=== PATIENT | female | born 1980 | race Caucasian/White ===

== ENCOUNTER 2016-12-14 07:36 | Inpatient (IN) | payer BC ==
[2016-12-14] MEDS ORDERED: Dinoprostone* 10 MG VAG.SUPP VAGINAL ONE ×2 (08:12→21:06)
[2016-12-14] MEDS: Omeprazole CAP* 20 MG PO SCH (09:41)
[2016-12-15] MEDS: Omeprazole CAP* 20 MG PO SCH (07:38)
[2016-12-15 10:49] LABS: Hematocrit 41 % (35-47); Hemoglobin 13.9 g/dl (12.0-16.0); Mean Corpuscular HGB Conc 34 g/dl (31-36); Mean Corpuscular Hemoglobin 28 pg (27-31); Mean Corpuscular Volume 84 fL (80-97); Mean Platelet Volume 9 um3 (7.4-10.4); Red Blood Count 4.87 10^6/ul (4.0-5.4); Red Cell Distribution Width 15 % (10.5-15); White Blood Count 11.6 10^3/ul (3.5-10.8)
[2016-12-15] MEDS ORDERED: Oxytocin in LR* 20 UNITS/1,000 ML BAG IVPB ONE (20:03)
[2016-12-15] MEDS ORDERED: Oxytocin in LR* 20 UNITS/1,000 ML BAG IVPB SCH (21:00)
[2016-12-15] MEDS ORDERED: Nalbuphine* 20 MG/ML 1 ML VIAL IV ONE (22:17)
[2016-12-15] MEDS ORDERED: Promethazine INJ(RESTRICTED)* 25 MG/ML 1 ML VIAL IV PRN (22:18)
[2016-12-16] MEDS: Omeprazole CAP* 20 MG PO SCH (10:32)
[2016-12-16] MEDS ORDERED: Misoprostol TAB* 100 MCG ONE (10:42)
[2016-12-16] MEDS ORDERED: Misoprostol TAB* 100 MCG PO ONE (10:42)
[2016-12-16] MEDS ORDERED: hydrOXYzine HCL TAB* 50 MG PO PRN (20:00)
[2016-12-16] MEDS ORDERED: Sodium Phosphate ADULT ENEMA* 118 ml bottle PR ONE (20:00)
[2016-12-16] MEDS ORDERED: hydrOXYzine HCL TAB* 50 MG PO ONE (20:00)
[2016-12-17] MEDS ORDERED: ceFOXitin 2 GM IVPREMIX* 2 GM/50 ML BAG IVPB ONE (07:04)
[2016-12-17] MEDS ORDERED: Sodium Citrate/Citric Acid* 15 ML UDC PO ONE (07:05)
[2016-12-17] MEDS ORDERED: Buffered Lidocaine 0.9% SYRIN* 5 ML/SYR SYRINGE ONE (07:11)
[2016-12-17] MEDS ORDERED: Morphine PF AMP (0.5MG/ML)* 5 MG/10 ML AMP ONE (08:00)
[2016-12-17] MEDS ORDERED: OXYTOCIN* 10 UNITS/ML 1 ML VIAL ONE (08:00)
[2016-12-17] MEDS ORDERED: Phenylephrine INJ* 10 MG/ML 1 ML VIAL (10 MG) ONE (08:00)
[2016-12-17 08:43] LABS: Hematocrit 40 % (35-47); Hemoglobin 13.5 g/dl (12.0-16.0); Mean Corpuscular HGB Conc 34 g/dl (31-36); Mean Corpuscular Hemoglobin 29 pg (27-31); Mean Corpuscular Volume 85 fL (80-97); Mean Platelet Volume 10 um3 (7.4-10.4); Red Blood Count 4.74 10^6/ul (4.0-5.4); Red Cell Distribution Width 15 % (10.5-15); White Blood Count 9.6 10^3/ul (3.5-10.8)
[2016-12-17] MEDS ORDERED: Ondansetron INJ* 2 MG/ML VIAL IV PRN ×2 (09:13→09:16)
[2016-12-17] MEDS ORDERED: fentaNYL* 50 MCG/ML 2 ML VIAL (100 MCG VIAL) IV PRN (09:13)
[2016-12-17] MEDS ORDERED: diPHENhydraMINE IV* 50 MG/ML 1 ml VIAL (BENADRYL) IV PRN (09:16)
[2016-12-17] MEDS ORDERED: Naloxone* 0.4 MG/ML 1 ML VIAL IV PRN (09:16)
[2016-12-17] MEDS ORDERED: oxyCODONE/Acetamin 5/325 MG* TAB PO PRN ×2 (09:16)
[2016-12-17] MEDS ORDERED: Witch Hazel PAD* JAR TOPICAL PRN (10:13)
[2016-12-17] MEDS ORDERED: Acetaminophen TAB* 325 MG PO PRN (10:13)
[2016-12-17] MEDS ORDERED: Dibucaine 1% 28.35 GM TUBE PR PRN (10:13)
[2016-12-17] MEDS ORDERED: Glycerin ADULT SUPP PR PRN (10:13)
[2016-12-17] MEDS ORDERED: Zolpidem TAB* 5 MG PO PRN (10:13)
[2016-12-17] MEDS ORDERED: RHO D Immune Globulin (HUMAN)* 300 MCG = 1,500 I.U. INJ IM ONE (10:13)
[2016-12-17] MEDS: Omeprazole CAP* 20 MG PO SCH (10:33)
[2016-12-17] MEDS ORDERED: Oxytocin in LR* 20 UNITS/1,000 ML BAG IVPB SCH (11:00)
[2016-12-17] MEDS ORDERED: diPHENhydraMINE IV* 50 MG/ML 1 ml VIAL (BENADRYL) ONE (11:26)
[2016-12-17] MEDS ORDERED: Ketorolac INJ* 30 MG/ML 1 ML VIAL ONE (11:27)
[2016-12-17] MEDS: Ketorolac INJ* 30 MG/ML 1 ML VIAL IV PRN ×2 (11:29→17:36)
--- NOTE | 2016-12-17 13:32 | OP ---
AMENDED REPORT NOW INCLUDES DATE OF OPERATION - ESIGNED BEFORE ADJUSTMENT * DATE OF OPERATION: 12/17/16 - ROOM #[id number] DATE OF : 76 SURGEON: Mitchell Spain MD HOSPITAL INTERN: Dr. Joya. PRE-OP DIAGNOSIS: Mild preeclampsia and failed induction. POST-OP DIAGNOSIS: Mild preeclampsia and failed induction. OPERATIVE PROCEDURE: section. ESTIMATED BLOOD LOSS: 600 mL. COMPLICATIONS: None. FINDINGS: Include a viable male. Apgars 8 and 8. Weight was 8 pounds 11 ounces. Normal appearing uterus, fallopian tubes and ovaries. No fibroid was visualized. DESCRIPTION OF PROCEDURE: Patient identified, procedure identified as low transverse section. Patient was taken to the operating room, prepped and draped in the usual fashion in the left lateral recumbent position and under spinal anesthesia, Pfannenstiel incision was made in the abdomen and carried down through fat, fascia and peritoneum. The Ezra retractor was placed and tightened down. An incision was made in the lower uterine segment, extended laterally using blunt dissection. The above was delivered through the incision with ease. Cord was doubly clamped and cut, and the infant was handed to the waiting fountain brush assembler. Cord blood was obtained, placenta delivered spontaneously. Uterus was wiped out with wet lap sponge. The uterine incision was then closed using 0 Polysorb in running fashion and a second layer was used to imbricate the first layer. Good hemostasis achieved with 0 Polysorb [id number] sutures. Both fallopian tubes and ovaries were visualized and appeared normal. Good hemostasis was verified. The peritoneum was closed using 3-0 Polysorb in a running fashion. The subrectus tissue was found to be hemostatic; it was closed using 0 Polysorb. The fascia was closed using 0 Polysorb in a running fashion. Hemostasis achieved in the sucbu. The space was closed using 0 Polysorb in a simple fashion and the skin was closed using 4-0 Monocryl in a subcuticular fashion. All sponge, instrument counts were correct. The patient tolerated the procedure well, went to recovery room in stable condition. [id number]/[facility] #: [id number] [facility]
[2016-12-17] MEDS: Simethicone CHEW TAB* 80 MG PO SCH ×3 (14:54→20:15)
[2016-12-17] MEDS: Docusate CAP* 100 MG PO SCH ×2 (14:54→20:15)
[2016-12-17 18:14] LABS: Hematocrit 40 % (35-47); Hemoglobin 13.5 g/dl (12.0-16.0)
[2016-12-18] MEDS: oxyCODONE/Acetamin 5/325 MG* TAB PO PRN ×4 (06:15→22:39)
[2016-12-18] MEDS: Omeprazole CAP* 20 MG PO SCH (06:17)
[2016-12-18 07:53] LABS: Hematocrit 38 % (35-47); Hemoglobin 13.2 g/dl (12.0-16.0); Mean Corpuscular HGB Conc 34 g/dl (31-36); Mean Corpuscular Hemoglobin 29 pg (27-31); Mean Corpuscular Volume 85 fL (80-97); Mean Platelet Volume 9 um3 (7.4-10.4); Red Blood Count 4.52 10^6/ul (4.0-5.4); Red Cell Distribution Width 15 % (10.5-15); White Blood Count 9.1 10^3/ul (3.5-10.8)
[2016-12-18] MEDS: Ferrous Gluconate TAB* 324 MG TAB PO SCH ×2 (09:00→09:51)
[2016-12-18] MEDS: Simethicone CHEW TAB* 80 MG PO SCH ×4 (09:50→20:32)
[2016-12-18] MEDS: Docusate CAP* 100 MG PO SCH ×3 (09:51→20:32)
[2016-12-18] MEDS: Ibuprofen TAB* 600 MG PO PRN ×2 (09:51→17:26)
[2016-12-18] MEDS ORDERED: Ibuprofen TAB* 600 MG PO PRN (10:13)
[2016-12-19] MEDS: Ibuprofen TAB* 600 MG PO PRN ×2 (00:34→08:10)
[2016-12-19] MEDS: oxyCODONE/Acetamin 5/325 MG* TAB PO PRN ×2 (03:42→08:09)
[2016-12-19] MEDS: Omeprazole CAP* 20 MG PO SCH (07:29)
[2016-12-19] MEDS: Simethicone CHEW TAB* 80 MG PO SCH (08:07)
[2016-12-19] MEDS: Docusate CAP* 100 MG PO SCH (08:10)
[2016-12-19 08:22] VITALS: BP 126/67
--- NOTE | 2016-12-19 08:47 | PTEDU ---
Patient Name: PATRICIO CAPPS PATRICIO CAPPS selected video: Follow Me Mum: The [employer] [facility] [employer] to view on 017 at 8:45:52 AM [id number]
--- NOTE | 2016-12-19 09:06 | PTEDU ---
Patient Name: PATRICIO CAPPS JEFRYPATRICIO selected video: Never Ever Shake a Baby to view on 12/19/2016 at 9:05:10 AM from [facility] [id number]
== END 2016-12-19 12:20 | disposition home or self-care (01) | DRG 540 ==
LOC: MCHOBOUT 07:36 → MCHOB 08:14
PROVIDERS: ADMIT Obstetrics & Gynecology; ATTEND Obstetrics & Gynecology
PROC: 3E0P7GC Introduction of Other Therapeutic Substance into Female Reproductive, Via Natural or Artificial Opening (ICD-10-PCS; 2016-12-17)
PROC: 10D00Z1 Extraction of Products of Conception, Low, Open Approach (ICD-10-PCS; principal; 2016-12-17 08:44)
DX: O14.03 Mild to moderate pre-eclampsia, third trimester (principal); O09.513 Supervision of elderly primigravida, third trimester; O62.2 Other uterine inertia; Z3A.38 38 weeks gestation of pregnancy; Z37.0 Single live birth
CPT/HCPCS: 36415; 85014; 85018; 85025; 85027; 86850; 86900; 86901; A9270-GY; J0694; J1200; J1885; J2300; J2405; J2550; J2590; S0191

== ENCOUNTER 2017-02-09 07:35 | Day surgery (SDC) | payer BC ==
[~2017-02-09 07:35] MED LIST: Buffered Lidocaine 0.9% SYRIN* 5 ML/SYR SYRINGE INTRADERM ONE; Dexamethasone IV* 4 MG/ML 1 ML (4 MG) IV SLOW PU ONE; Famotidine IV* 10 MG/ML 2 ML (20 mg) IV ONE
[2017-02-09] MEDS ORDERED: Famotidine IV* 10 MG/ML 2 ML (20 mg) ONE (07:37)
[2017-02-09] MEDS ORDERED: Buffered Lidocaine 0.9% SYRIN* 5 ML/SYR SYRINGE ONE (07:37)
[2017-02-09] MEDS ORDERED: Dexamethasone IV* 4 MG/ML 1 ML (4 MG) ONE (07:37)
[2017-02-09] MEDS ORDERED: Midazolam* 1 MG/ML 2 ML VIAL (2 MG) ONE (08:11)
[2017-02-09] MEDS ORDERED: fentaNYL* 50 MCG/ML 2 ML VIAL (100 MCG VIAL) ONE ×3 (08:11→09:49)
[2017-02-09] MEDS ORDERED: Remifentanil* 2 MG VIAL ONE (08:11)
[2017-02-09] MEDS ORDERED: Propofol* 10 MG/ML 20 ML BTL IV PUSH ONE ×2 (08:16→09:04)
[2017-02-09] MEDS ORDERED: Ondansetron INJ* 2 MG/ML VIAL ONE (08:16)
[2017-02-09] MEDS ORDERED: Ketorolac INJ* 30 MG/ML 1 ML VIAL ONE (08:16)
[2017-02-09] MEDS ORDERED: Lidocaine 2% PF * 5 ML VIAL ONE (08:16)
[2017-02-09] MEDS ORDERED: Succinylcholine* 20 MG/ML 10 ML VIAL ONE (08:25)
[2017-02-09] MEDS ORDERED: Bupivacaine 0.5% SDV PF* 30 ML VIAL ONE (08:32)
[2017-02-09] MEDS ORDERED: Levalbuterol 0.63MG/3ML NEB* UNIT OF USE INH PRN (08:33)
[2017-02-09] MEDS ORDERED: Acetaminophen TAB* 325 MG PO PRN (08:33)
[2017-02-09] MEDS ORDERED: Ondansetron INJ* 2 MG/ML VIAL IV PRN (08:33)
[2017-02-09] MEDS ORDERED: oxyCODONE TAB* 5 MG TAB PO PRN (08:33)
[2017-02-09] MEDS ORDERED: Scopolamine 1.5 mg* PATCH TRANSDERM PRN (08:33)
[2017-02-09] MEDS ORDERED: oxyCODONE/Acetamin 5/325 MG* TAB PO PRN (08:33)
[2017-02-09] MEDS ORDERED: Levalbuterol HFA INHALER* 1 PUFF MDI ONE (08:52)
[2017-02-09] MEDS ORDERED: Glycopyrrolate IV* 0.2 MG/ML 1 ML VIAL ONE (09:11)
[2017-02-09] MEDS ORDERED: Levalbuterol 1.25MG/0.5ML NEB ONE (09:40)
[2017-02-09] MEDS: fentaNYL* 50 MCG/ML 2 ML VIAL (100 MCG VIAL) IV PRN ×4 (09:44→09:57)
[2017-02-09] MEDS ORDERED: HYDROmorphone INJ* 1 MG/ML CARPUJECT SYRINGE ONE (09:49)
[2017-02-09] MEDS: HYDROmorphone INJ* 1 MG/ML CARPUJECT SYRINGE IV PRN ×2 (09:52→09:59)
[2017-02-09 11:14] VITALS: BP 116/65
--- NOTE | 2017-02-09 22:22 | OP ---
DATE OF OPERATION: 02/09/17 - [facility] DATE OF : 76 SURGEON: Mitchell Spain MD. ANESTHESIOLOGIST: Barbara Shelton MD ANESTHESIA: General endotracheal tube. PRE-OP DIAGNOSIS: Desires permanent sterilization. POST-OP DIAGNOSES: Desires permanent sterilization, left ovarian cyst. OPERATIVE PROCEDURE: Laparoscopic bilateral tubal ligation and drainage of ovarian cyst. COMPLICATIONS: None. FINDINGS: On exam under anesthesia on laparoscopy, the anterior bladder flap contains some adhesions. The left ovary was enlarged approximately 6 x 5 cm with a smooth surface. The fallopian tube on this side appeared normal. There were no excrescences. On the right side, the right ovary appeared normal and the right tube appeared normal. DESCRIPTION OF PROCEDURE: The patient identified, procedure identified as a laparoscopic tubal ligation, taken to the operating room, prepped and draped in the usual fashion in the dorsal lithotomy position under general anesthesia. A small infraumbilical incision was made and a Veress needle was inserted through this. The abdomen was insufflated to 15 mmHg. The Veress needle was removed and the trocar was inserted. The trocar was removed from the sheath and the laparoscope was inserted and the above findings were noted. A second trocar was inserted 2 cm above the pubic symphysis in the midline under direct visualization. The bipolar Kleppinger cautery was inserted, the right fallopian tube was grasped in the mid portion, followed out to its fimbriated ends and fulgurated x3. The same procedure was carried out on the left after following out to its fimbriated ends. Good hemostasis was verified. Due to the left ovarian cyst, decision was made to drain this and assess the fluid. The fluid was clear. Using unipolar cautery, a small window was made in the left ovary and clear fluid was obtained. A small amount was sent for cytology. Good hemostasis was verified. All instruments were removed from the abdomen. The abdomen was deflated of CO2. All sponge and instrument counts were correct. The skin was closed with skin glue. Sponge and sponge sticks were removed from the vagina and the patient returned to recovery room in stable condition. [id number]/[facility] #: [id number] MTDD
[2017-02-12] MEDS ORDERED: Scopolamine PATCH Remove* 1 NOTE MISC PATCH OFF ONE (08:33)
== END 2017-02-09 11:23 | disposition home or self-care (01) ==
LOC: OR 07:35
PROVIDERS: ATTEND Obstetrics & Gynecology
DX: Z30.2 Encounter for sterilization (principal); N83.202 Unspecified ovarian cyst, left side; F17.200 Nicotine dependence, unspecified, uncomplicated; Z68.27 Body mass index [BMI] 27.0-27.9, adult; K21.9 Gastro-esophageal reflux disease without esophagitis
CPT/HCPCS: 81025; 88112; A9270-GY; J0330; J1100; J1170; J1885; J2250; J2405; J2704; J3010

== ENCOUNTER 2018-06-10 18:49 | Emergency (ER) | payer BC ==
[2018-06-10 19:23] VITALS: BP 135/91
[2018-06-10] MEDS ORDERED: Lidocaine 1%* 5 ML VIAL INJ ONE (20:37)
[2018-06-10] MEDS ORDERED: Tetan/Diph/Pertus SYR(Tdap)* 0.5 ML SYR(BOOSTRIX) use SYR IM ONE (20:38)
[2018-06-10] MEDS ORDERED: Amoxicillin PO (*) 500 MG CAP PO ONE (21:29)
--- NOTE | 2018-06-11 11:33 | UC ---
Laceration HPI - HPI Summary HPI Summary: 37 y/o female presents to the urgent care c/o cutting her Rt hand at the base of her Rt pinky finger w/ a glass while washing the dishes around 1820 tonight. Pt states glass broken side and she didn't realized it when she put her hand in. Pt states bleeding stopped w/ pressure. Pain is 4/10 at touch. She can move finger w/o any difficulty. Pt also c/o nasal congestion sinus pain and pressure w/ green nasal discharge for the pst 2 weeks. symptoms are getting worse since now she is developing a dry cough.pt denies numbness or tingling sensation over the hand or fingers, SOB, chest pain, dizziness, abdominal pain, N/V/d.,. Pt is not UTD w/ her Tetanus vaccines. - History Of Current Complaint Chief Complaint: UCUpperExtremity Stated Complaint: FINGER LACERATION Time Seen by Provider: 06/10/18 20:07 Hx Obtained From: Patient Hx Last Menstrual Period: 05/27/18 Laceration Location: Hand - RT hand dorsal side over the 5th MCPJ Mechanism Of Injury: Sharp Trauma Onset/Duration: Sudden Onset, Lasting Hours - 2 hrs, Still Present Severity: Mild Pain Intensity: 4 Pain Scale Used: 0-10 Numeric Aggravating Factors: Movement, Other: - touch Related History: Dominant Hand Right - Allergies/Home Medications Allergies/Adverse Reactions: Allergies Allergy/AdvReac Type Severity Reaction Status Date / Time No Known Allergies Allergy Verified 06/10/18 19:23 PMH/Surg Hx/FS Hx/Imm Hx Previously Healthy: Yes GI/ History: Gastroesophageal Reflux - Surgical History Surgical History: Yes Surgery Procedure, Year, and Place: tonsillectomy and adenoidectomy 2004 [facility] [place]. C SECTION 12/17/16 [facility] [place] SPINAL ANESTHESIA - Family History Known Family History: Positive: Cardiac Disease - CHF, Diabetes - Social History Occupation: Employed Full-time Lives: With Family Alcohol Use: Occasionally Alcohol Amount: 2 BEERS Substance Use Type: None Smoking Status (MU): Light Every Day Tobacco Smoker Type: Cigarettes Amount Used/How Often: 1/2 ppd - Immunization History Most Recent Influenza Vaccination: Unknown Most Recent Pneumonia Vaccination: Unknown Review of Systems All Other Systems Reviewed And Are Negative: Yes Constitutional: Positive: Negative Skin: Positive: Other - laceration over the Rt hand dorsal side w/ a glass ENT: Positive: Negative Respiratory: Positive: Negative Cardiovascular: Positive: Negative Gastrointestinal: Positive: Negative Genitourinary: Positive: Negative Motor: Positive: Negative Neurovascular: Positive: Negative Musculoskeletal: Positive: Other: - Rt hand pain s/p laceration w/ a glass Neurological: Positive: Negative Psychological: Positive: Negative Is Patient Immunocompromised?: No Physical Exam - Summary Physical Exam Summary: Vital Signs Reviewed: Yes General: well developed, well nourished female sitting in the examining table w/ o any apparent distress Eye Exam: Normal Eyes: Positive: Conjunctiva Clear - PERRLA, EOMI, fundi grossly normal ENT: Positive: Normal ENT inspection, Hearing grossly normal, Pharynx normal, TMs normal. Positive maxillary and frontal tenderness on percussion, Erythemaots and edematous nasal mucosa w/ yellowish drainage and +moderated PND. Neck: Positive: Supple, Nontender, No Lymphadenopathy Respiratory: Positive: Chest non-tender, Lungs clear, Normal breath sounds, No respiratory distress Cardiovascular: Positive: RRR, No Murmur, Pulses Normal, Brisk Capillary Refill Abdomen Description: Positive: Nontender, No Organomegaly, Soft. Negative: CVA Tenderness (R), CVA Tenderness (L) Bowel Sounds: Positive: Present Musculoskeletal: Positive: Strength Intact, ROM Intact, No Edema Neurological: Positive: Alert, Muscle Tone Normal Psychological Exam: Normal Skin: Positive:Dorsal side of the Rt hand over the 5th MCPJ w/ a linear superficial laceration about 1.5cm in size, non bleeding, no foreign body observed. mild tenderness to palpation, FROM of RT hand and fingers, sensation intact, capillary refill brisk, and pulses WNL. Triage Information Reviewed: Yes Vital Signs: Initial Vital Signs Temp 98.3 F 06/10/18 19:16 Pulse 80 06/10/18 19:16 Resp 18 06/10/18 19:16 BP 135/91 06/10/18 19:16 Pulse Ox 97 06/10/18 19:16 Laceration Repair - Laceration Repair 1 Description: Linear Laceration Size After Repair: Length (cm) - 1.5 cm in size Modified For Repair: No Anesthesia Used: 1.0% Lido - 2 ml Cleansing Completed Via Routine Prep: Yes Irrigation With Pressure Irrigation Device: Yes Closure Material: Sutures - 5 Closure Method: Single Layer Suture Of: Skin, SQ Suture Type: Nylon Laceration Course/Dx - Course/Dx Course Of Treatment: 37 y/o female presents to the urgent care c/o cutting her Rt hand at the base of her Rt pinky finger w/ a glass while washing the dishes around 1820 tonight. Pt states glass broken side and she didn't realized it when she put her hand in. Pt states bleeding stopped w/ pressure. Pain is 4/10 at touch. She can move finger w/o any difficulty. Pt also c/o nasal congestion sinus pain and pressure w/ green nasal discharge for the pst 2 weeks. symptoms are getting worse since now she is developing a dry cough.pt denies numbness or tingling sensation over the hand or fingers, SOB, chest pain, dizziness, abdominal pain, N/V/d.,. Pt is not UTD w/ her Tetanus vaccines.Hx obtained. Pt w / sinusitis and superfifical linear laceration of 1.5 cm in size over the RT dorsal side of the RT 5th MCPJ w/ FROM on examination. LACERATION PROCEDURE NOTE : . Copious irrigation was done with saline by the nurse and the wound explored. There was no FB or deep structure injury noted. FROM of left forearm. procedure was explained and consent obtained, Timeout performed. The wound was anesthetized with 2 mL of 1% lido with good anesthesia. Sterile drape and prep were don. There were 5 sutures with 5.0 nylon type of suture. The length of the wound after closure was 1.5cm. No debridement done. Pt tolerated the procedure well without adverse effects. Neurovascular intact and FROM. Tdap ordered and applied by nurse. Pt advised to f/u suture removal in 10 -12 days and if any signs of infection develop to immediately return to the urgent care of PCP for further management and treatment. Pt Rx Amoxicillin PO and Flonase Nasal spray to alleviate Sinusitis as directed below. First dose given at the clinic tonight by nurse. Pt given alos Tdap IM inj. Pt tolerated well IM inj. D/C instructions explained. Pt understood and agreed and left the clinic ambulating A&Ox3. - Differential Dx - Laceration/Wound Differental Diagnoses: Abrasion, Avulsion, Foreign Body, Fracture, Laceration, Puncture Wound, Tendon Laceration - Diagnosis Provider Diagnosis: Laceration of right hand, Acute bacterial sinusitis, Elevated BP without diagnosis of hypertension Discharge - Sign-Out/Discharge Documenting (check all that apply): Patient Departure - D/C home All imaging exams completed and their final reports reviewed: No Studies - Discharge Plan Condition: Stable Disposition: HOME Prescriptions: Amoxicillin PO (*) [Amoxicillin 875 MG (*)] 875 mg PO BID #19 tab Bacitracin OINTMENT* 1 applic TOPICAL BID #1 tube Fluticasone NASAL SPRAY 50MCG* [Flonase NASAL SPRAY 50MCG*] 2 spray BOTH NARES DAILY #1 btl Patient Education Materials: Laceration (DC), Sinusitis (ED) Forms: *Work Release Referrals: Flavio Conroy MD [Primary Care Provider] - 1 Week Additional Instructions: 1-Please take full course of antibiotic to avoid resistance to alleviate your sinusitis. Use flonase nasal spray and saline drops as directed to clear sinuses 2- Keep wound clean and dry and avoid excessive movement w/ your finger. Apply Bacitracin ointment as directed to avoid infection. 3- F/u suture removal in 10-12 days w/ your PCP or here at the urgent care. 4-Take Ibuprofen or Tylenol PO q6-8hrs prn for pain or swelling. 5- If you develop fever or redness around your finger despite the antibiotic please return to the Urgent care or you PCP. 6-Your BP is elevated today. please decrease salt in your diet, monitor BP and if it continues to be elevated please f/u with your PCP for further management. - Billing Disposition and Condition Condition: STABLE Disposition: Home
== END 2018-06-10 21:56 | disposition home or self-care (01) ==
LOC: UCEAST 18:49
DX: S61.411A Laceration without foreign body of right hand, initial encounter (principal); W25.XXXA Contact with sharp glass, initial encounter; Y93.G1 Activity, food preparation and clean up; Y92.9 Unspecified place or not applicable; J01.90 Acute sinusitis, unspecified; B96.89 Other specified bacterial agents as the cause of diseases classified elsewhere; R03.0 Elevated blood-pressure reading, without diagnosis of hypertension; F17.210 Nicotine dependence, cigarettes, uncomplicated
CPT/HCPCS: 12001; 90471; 90715; 99212; A9270-GY; G0463

== ENCOUNTER 2018-06-19 18:22 | Emergency (ER) | payer BC ==
[2018-06-19 19:36] VITALS: BP 127/75
--- NOTE | 2018-06-19 19:58 | UC ---
HPI Wound/Suture Re-check - HPI Summary HPI Summary: 37-year-old female presents for suture removal. She was seen at this facility on 06/10/2018 for a laceration to her posterior right hand immediately over the MCP of the little finger. Denies fever, chills, drainage, joint pain, or swelling. - History Of Current Complaint Chief Complaint: UCSkin Stated Complaint: SUTURE REMOVAL Time Seen by Provider: 06/19/18 19:44 Hx Obtained From: Patient Hx Last Menstrual Period: 05/27/18 Pain Intensity: 0 - Allergies/Home Medications Allergies/Adverse Reactions: Allergies Allergy/AdvReac Type Severity Reaction Status Date / Time No Known Allergies Allergy Verified 06/19/18 19:36 PMH/Surg Hx/FS Hx/Imm Hx Previously Healthy: Yes GI/ History: Gastroesophageal Reflux - Surgical History Surgical History: Yes Surgery Procedure, Year, and Place: [place]il[place] [facility] [place] [facility] [place] SPINAL ANESTHESIA - Family History Known Family History: Positive: Cardiac Disease - CHF, Diabetes - Social History Occupation: Employed Full-time Lives: With Family Alcohol Use: Occasionally Alcohol Amount: 2 BEERS Substance Use Type: None Smoking Status (MU): Light Every Day Tobacco Smoker Type: Cigarettes Amount Used/How Often: 1/2 ppd - Immunization History Most Recent Influenza Vaccination: Unknown Most Recent Pneumonia Vaccination: Unknown Review of Systems All Other Systems Reviewed And Are Negative: Yes Constitutional: Negative: Fever, Chills Skin: Positive: Other - See HPI Respiratory: Positive: Negative Cardiovascular: Positive: Negative Gastrointestinal: Positive: Negative Genitourinary: Positive: Negative Musculoskeletal: Positive: Negative Neurological: Positive: Negative Is Patient Immunocompromised?: No Physical Exam Triage Information Reviewed: Yes Appearance: Well-Appearing, No Pain Distress, Well-Nourished Vital Signs: Initial Vital Signs Temp 97.4 F 06/19/18 19:32 Pulse 85 06/19/18 19:32 Resp 18 06/19/18 19:32 BP 127/75 06/19/18 19:32 Pulse Ox 98 06/19/18 19:32 Vital Signs Reviewed: Yes Respiratory: Positive: Lungs clear, Normal breath sounds, No respiratory distress Cardiovascular: Positive: RRR, No Murmur, Pulses Normal, Brisk Capillary Refill Musculoskeletal: Positive: Strength Intact, ROM Intact Neurological: Positive: Alert Skin: Positive: Other - Healing 1.5 cm laceration to the right hand at the base of the little finger without redness, swelling, or discharge. Procedures - Procedure Summary Procedure Summary: 5 interrupted sutures removed from laceration to the posterior right hand over the MCP of the little finger. Wound margins well approximated. Three 1/8 inch Steri-Strips were applied with tincture of benzoin. Tolerated procedure well without complication. Course/Dx - Course Course Of Treatment: 37-year-old female presents for suture removal. She was seen at this facility on 06/10/2018 for a laceration to her posterior right hand immediately over the MCP of the little finger. Denies fever, chills, drainage, joint pain, or swelling. Afebrile. Vital signs stable. Exam reveals an adult female in no acute distress with a well-healing laceration to the dorsal right hand immediately over the MCP of the little finger with mild marginal erythema. No swelling, discharge, or joint pain. Full active range of motion. Sutures were removed without complication and three 1/8 inch Steri-Strips were placed. She is to follow-up with primary care provider as needed. Wound care, anticipatory guidance, and warning symptoms were reviewed with the patient. Verbalizes understanding and agrees with plan of care. - Differential Dx - Laceration/Wound Differential Diagnoses: Cellulitis, Dehiscence, Healing Wound, Suture Removal - Diagnosis Provider Diagnosis: Laceration without foreign body of right hand, subsequent encounter, Encounter for removal of sutures Discharge - Sign-Out/Discharge Documenting (check all that apply): Patient Departure All imaging exams completed and their final reports reviewed: No Studies - Discharge Plan Condition: Stable Disposition: HOME Patient Education Materials: Acute Wound Care (ED) Referrals: Flavio Conroy MD [Primary Care Provider] - If Needed Additional Instructions: Your laceration appears to be healing well. The sutures were removed without difficulty. I did place some Steri-Strips to help keep the wound closed while it finishes healing. The Steri-Strips will slowly peel up from the ends. You can trim the ends but do not pull them off as this could cause the wound to reopen. Keep the wound clean with a mild soap and water. Apply an antibiotic ointment to keep the wound moist and cover with a dressing. Continue to monitor for signs of infection including fever greater than 100.5 F , pain that is not managed with over the counter pain medication, redness that spreads, increased swelling, or pus draining from wound. Seek immediate medical attention should any of these occur. - Billing Disposition and Condition Condition: STABLE Disposition: Home
[2018-06-19] MEDS ORDERED: Benzoin Compound STICK ONE (20:02)
[2018-06-19] MEDS ORDERED: Benzoin Compound STICK TOPICAL ONE (20:17)
== END 2018-06-19 20:26 | disposition home or self-care (01) ==
LOC: UCEAST 18:22
DX: S61.411D Laceration without foreign body of right hand, subsequent encounter (principal); F17.210 Nicotine dependence, cigarettes, uncomplicated; X58.XXXD Exposure to other specified factors, subsequent encounter

== ENCOUNTER 2019-04-15 11:54 | Emergency (ER) | payer BC, OTHER ==
[2019-04-15 12:54] VITALS: BP 148/83
[2019-04-15] MEDS ORDERED: Ibuprofen TAB* 400 MG PO ONE (13:21)
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
== END 2019-04-15 14:11 | disposition home or self-care (01) ==
LOC: UCEAST 11:54
DX: S16.1XXA Strain of muscle, fascia and tendon at neck level, initial encounter (principal); F17.210 Nicotine dependence, cigarettes, uncomplicated; M50.30 Other cervical disc degeneration, unspecified cervical region; M53.82 Other specified dorsopathies, cervical region; R51 Headache; W55.32XA Struck by other hoof stock, initial encounter; Y92.9 Unspecified place or not applicable
CPT/HCPCS: 72040; 99213; A9270-GY; G0463